=== PATIENT | female | born 1940 | race Caucasian/White ===

== ENCOUNTER 2022-04-01 08:03 | Emergency (ER) | payer MEDICARE, SELFPAY ==
[2022-04-01 08:08] VITALS: BP 106/61; PULSE 82; RESP 20; TEMP 36.2; O2SAT 98
--- NOTE | 2022-04-01 08:22 | ED.GENADULT ---
HPI - General Adult General Chief complaint: Ear Stated complaint: Right Ear Pain Source: patient Mode of arrival: ambulatory Limitations: no limitations History of Present Illness HPI narrative: Patient presents for evaluation of right ear discomfort as 5 days. She initially felt like there was water in her ear. She states that this morning around 0300 she noted a sharp pain behind her ear and in her ear canal. She states she placed a Q tip in her ear and noted some blood. Denies hearing loss or tinnitus. She attends water aerobics regularly. She denies any infectious symptoms including fever, sore throat or cough. Related Data Allergies Allergy/AdvReac Type Severity Reaction Status Date / Time No Known Allergies Allergy Verified 04/01/22 08:16 Review of Systems Review of Systems: CONSTITUTIONAL: Denies fever, chills, or sweats. EYES: Denies visual changes, redness, or discharge. ENT: Reports right sided otalgia with sanguinous drainage from the ear. Denies rhinorrhea, congestion, or sore throat. CARDIOVASCULAR: Denies chest pain, palpitations, or edema. RESPIRATORY: Denies cough or dyspnea. GASTROINTESTINAL: Denies abdominal pain, nausea, vomiting, or diarrhea. GENITOURINARY: Denies dysuria or hematuria. SKIN: Denies rash or itching. MUSCULOSKELETAL: Denies back pain, joint pain, or myalgia. NEUROLOGIC: Denies headache, numbness, dizziness, or weakness. PSYCHIATRIC: Denies anxiety or depression. PMFSH Past Medical History Medical History No pertinent past medical history Surgical History Surgical History No pertinent past surgical history Family History Family History Mother Family history non-contributory Social History Social History Smoking status: Never smoker Substance use: never Living arrangements: with family Gender identity (if verbalized by the patient): Female Sexual Orientation (if Verbalized by the Patient): Straight or Heterosexual Spiritual care concerns: No Exam Narrative: GENERAL: Well-appearing, well-nourished, and in no acute distress. HEAD: Normocephalic, atraumatic. EYES: PERRLA and EOMI. ENT: Nares clear, no rhinorrhea or epistaxis. Mucous membranes moist. Oropharynx without tonsillar hypertrophy exudate or other lesions. There is sanguinous drainage noted in right ear canal which obscures full visualization of TM. NECK: Supple. No adenopathy or masses. No carotid bruits or JVD CHEST: Clear to auscultation. No respiratory distress. No wheezes rales or rhonchi HEART: Regular rate and rhythm. No murmur heard. Normal peripheral pulses. ABDOMEN: Soft, nontender, nondistended, normal active bowel sounds. EXTREMITIES: Normal range of motion. No edema. SKIN: Warm, dry, no rash. NEURO: No focal deficits. Alert and oriented x3. PSYCH: Normal mood and affect. Course Course Emergency Course: This is an 82-year-old female who presented for evaluation of right-sided ear pain. Historical reports are consistent with otitis externa however I am unable to fully visualize the right TM. Based on sanguinous drainage present, pt could have otitis media with rupture of the TM. Therefore, will tx with augmentin and cipro otic. Pt should follow up outpatient for further evaluation and treatment and return for worsening symptoms. Pt in agreement with plan of care. Level of Care: Express Care Visit Vital Signs Vital signs: Vital Signs Temperature 36.2 C L 04/01/22 08:08 Pulse Rate 82 04/01/22 08:08 Respiratory Rate 20 04/01/22 08:08 Blood Pressure 106/61 04/01/22 08:08 Pulse Oximetry 98 04/01/22 08:08 Oxygen Delivery Room Air 04/01/22 08:08 Temperature 36.2 C L 04/01/22 08:08 Pulse Rate 82 04/01/22 08:08 Respiratory
== END 2022-04-01 08:28 | disposition home or self-care (01) ==
PROVIDERS: Emergency Provider Nurse Practitioner; PCP Internal Medicine
DX: H66.91 Otitis media, unspecified, right ear (principal)
CPT/HCPCS: 99213; G0463